=== PATIENT | male | born 1985 | race Two or more races ===

== ENCOUNTER 2024-09-05 23:02 | Emergency (ER) | payer OTHER ==
[~2024-09-05] VITALS: Ht 170.2 cm; Wt 90.7 kg
[2024-09-06] MEDS: TDAP DIPH,PERTUSS,TET VAC/PF 0.5 ML DISP.SYRIN IM ONE (00:27)
[2024-09-06] MEDS ORDERED: LIDOCAINE HCL 1% 20 ML VIAL ONE (00:55)
[2024-09-06] MEDS: LIDOCAINE HCL 1% 20 ML VIAL IJ ONE (01:29)
[2024-09-06 01:47] VITALS: BP 128/77; O2SAT 98
== END 2024-09-06 01:48 | disposition home or self-care (01) ==
LOC: ER 23:16
DX: S61.215A Laceration without foreign body of left ring finger without damage to nail, initial encounter (principal); W26.0XXA Contact with knife, initial encounter; Y93.89 Activity, other specified; Y92.89 Other specified places as the place of occurrence of the external cause; Y99.0 Civilian activity done for income or pay
CPT/HCPCS: 12002; 99282; J3490; A4606; A4663